=== PATIENT | female | born 1985 | race Caucasian/White ===

== ENCOUNTER 2017-02-24 09:05 | Emergency (ER) | payer OTHER ==
[~2017-02-24] VITALS: Ht 177.8 cm; Wt 90.7 kg
[2017-02-24 09:05] VITALS: BP 129/83
== END 2017-02-24 10:00 | disposition home or self-care (01) ==
LOC: ER 09:05
DX: S51.812D Laceration without foreign body of left forearm, subsequent encounter (principal); S51.811D Laceration without foreign body of right forearm, subsequent encounter; S91.311D Laceration without foreign body, right foot, subsequent encounter; S61.412D Laceration without foreign body of left hand, subsequent encounter; Z48.02 Encounter for removal of sutures; W54.0XXD Bitten by dog, subsequent encounter; Y92.89 Other specified places as the place of occurrence of the external cause; Y99.8 Other external cause status